=== PATIENT | male | born 1995 | race Caucasian/White ===

== ENCOUNTER 2018-09-21 21:53 | Emergency (ER) | payer OTHER ==
[2018-09-21 22:05] VITALS: BP 131/77; PULSE 67; TEMP 98; BMI 26.4
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
[2018-09-22] MEDS ORDERED: ACETAMINOPHEN 325 MG TABLET (FP) PO ONE (00:05)
[2018-09-22] MEDS ORDERED: ACETAMINOPHEN 325 MG TABLET (FP) ONE (00:19)
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
== END 2018-09-22 01:31 | disposition home or self-care (01) ==
LOC: JER 21:53
DX: S00.83XA Contusion of other part of head, initial encounter (principal); Y04.8XXA Assault by other bodily force, initial encounter; Y93.89 Activity, other specified; Y92.89 Other specified places as the place of occurrence of the external cause; I10 Essential (primary) hypertension
CPT/HCPCS: 70486-TC; 99283-25